=== PATIENT | male | born 1965 | race African-American/Black ===

== ENCOUNTER 2020-12-10 17:07 | Inpatient (IN) ==
[2020-12-10] MEDS ORDERED: ONDANSETRON 4 MG/2 ML VIAL IV PRN (17:29)
[2020-12-10] MEDS ORDERED: ALUMINUM/MAGNES/SIMETH MAX STR 30 ML UDCUP PO PRN (17:29)
[2020-12-10] MEDS ORDERED: ALBUTEROL 2.5 MG/3 ML NEB RESP TX PRN (17:29)
[2020-12-10] MEDS ORDERED: NOREPINEPHRINE 8 MG in SODIUM CHLORIDE 0.9% 242 ML IV SCH (17:30)
[2020-12-10] MEDS: LACTATED RINGERS 1,000 ML IV SCH (18:51)
[2020-12-10] MEDS: ENOXAPARIN 40 MG/0.4 ML SYRINGE SUBCUT SCH (18:55)
[2020-12-10] MEDS: CLINDAMYCIN INJ 600 MG in PREMIX 1 EACH IV SCH (18:55)
[2020-12-10] MEDS ORDERED: PNEUMOCOCCAL VACCINE (13 VALENT) 0.5 ML SYRINGE IM ONE (19:05)
[2020-12-10] MEDS: MEROPENEM 500 MG in SODIUM CHLORIDE 0.9% 100 ML IV SCH (20:10)
[2020-12-10] MEDS: methylPREDNISolone SOD SUC 40 MG/1 ML VIAL IV SCH (20:20)
[2020-12-11] MEDS: MEROPENEM 500 MG in SODIUM CHLORIDE 0.9% 100 ML IV SCH ×4 (00:11→17:19)
[2020-12-11] MEDS: CLINDAMYCIN INJ 600 MG in PREMIX 1 EACH IV SCH ×2 (02:08→09:09)
[2020-12-11] MEDS: LACTATED RINGERS 1,000 ML IV SCH ×2 (02:32→10:07)
[2020-12-11 04:27] LABS: Basophils % 0.1 % (0.0-0.8); Hematocrit 31.6 VOL% (42.0-52.0); Hemoglobin 10.5 GM/DL (14.0-18.0); Immature Granulocytes % 1.6 %; Immature Granulocytes Absolute 0.15 #; Lymphocytes # 0.3 10*3/uL (1.4-4.0); Lymphocytes % 2.6 % (21.2-54.2); Mean Corpuscular HGB Conc 33.2 GM/DL (32-36); Mean Corpuscular Volume 87.1 FL (87-102); Neutrophils % 93.7 % (38.7-73.9); Platelet Count 179 T/CUMM (130-400); Red Blood Count 3.63 MC/CUMM (3.8-5.5); Red Cell Distribution Width 16.4 % (9.3-17.3); White Blood Count 9.5 T/CUMM (4-12)
[2020-12-11 04:33] LABS: INR 1.2; PT Patient Result 13.2 SECS (9.8-11.9)
[2020-12-11] MEDS: ALBUTEROL/IPRATROPIUM 3 ML NEB RESP TX SCH ×4 (04:40→19:08)
[2020-12-11 04:51] LABS: Lymphocytes 3 % (20-55); Segmented Neutrophils 95 % (50-85); Total Cells Counted 100
[2020-12-11 04:52] LABS: Hypochromasia 1+; Microcytosis 1+; Ovalocytes Slight; Target Cells Slight
[2020-12-11 04:59] LABS: Albumin 2.3 G/DL (3.4-5.0); Bilirubin,Total 0.5 MG/DL (0.2-1.0); Calcium 8.7 MG/DL (8.5-10.1); Osmolality,Calculated 282.5 MOS/KG (273-304); Potassium 3.4 MMOL/L (3.5-5.1); Thyroid Stimulating Hormone 0.335 uIU/ml (0.358-3.74)
[2020-12-11] MEDS: methylPREDNISolone SOD SUC 40 MG/1 ML VIAL IV SCH ×2 (05:30→17:19)
[2020-12-11] MEDS: PANTOPRAZOLE 40 MG TABLET PO SCH (08:28)
[2020-12-11] MEDS ORDERED: POTASSIUM CHLORIDE 20 MEQ TABLET PO ONE (10:00)
[2020-12-11] MEDS: ENOXAPARIN 40 MG/0.4 ML SYRINGE SUBCUT SCH (17:20)
[2020-12-12] MEDS: ALBUTEROL/IPRATROPIUM 3 ML NEB RESP TX SCH ×4 (01:14→19:47)
[2020-12-12] MEDS: MEROPENEM 500 MG in SODIUM CHLORIDE 0.9% 100 ML IV SCH ×4 (01:40→19:06)
[2020-12-12 04:21] LABS: Osmolality,Calculated 283.5 MOS/KG (273-304); Potassium 3.5 MMOL/L (3.5-5.1)
[2020-12-12] MEDS: methylPREDNISolone SOD SUC 40 MG/1 ML VIAL IV SCH ×2 (06:31→19:06)
[2020-12-12] MEDS: amLODIPine 5 MG TABLET PO SCH (08:49)
[2020-12-12] MEDS: ENALAPRIL 10 MG TABLET PO SCH (08:49)
[2020-12-12] MEDS: PANTOPRAZOLE 40 MG TABLET PO SCH (08:49)
[2020-12-12] MEDS: FOLIC ACID 1 MG TABLET PO SCH (08:49)
[2020-12-12] MEDS: ENOXAPARIN 40 MG/0.4 ML SYRINGE SUBCUT SCH (19:04)
[2020-12-13] MEDS: MEROPENEM 500 MG in SODIUM CHLORIDE 0.9% 100 ML IV SCH ×4 (00:09→17:58)
[2020-12-13] MEDS: ALBUTEROL/IPRATROPIUM 3 ML NEB RESP TX SCH ×4 (00:37→19:48)
[2020-12-13 05:42] LABS: Basophils % 0.1 % (0.0-0.8); Hematocrit 29.7 VOL% (42.0-52.0); Hemoglobin 9.7 GM/DL (14.0-18.0); Immature Granulocytes % 3.4 %; Immature Granulocytes Absolute 0.84 #; Lymphocytes # 0.2 10*3/uL (1.4-4.0); Lymphocytes % 0.6 % (21.2-54.2); Mean Corpuscular HGB Conc 32.7 GM/DL (32-36); Mean Corpuscular Volume 89.5 FL (87-102); Mean Platelet Volume 10.5 FL (9.6-12.0); Monocytes % 3.8 % (1.7-12.7); Neutrophils % 92.1 % (38.7-73.9); Platelet Count 147 T/CUMM (130-400); Red Blood Count 3.32 MC/CUMM (3.8-5.5); Red Cell Distribution Width 16.6 % (9.3-17.3); White Blood Count 24.8 T/CUMM (4-12)
[2020-12-13 06:02] LABS: Hypochromasia 1+; Microcytosis 1+; Ovalocytes Slight; Platelet Estimate Adequate; Segmented Neutrophils 97 % (50-85); Total Cells Counted 100
[2020-12-13] MEDS: methylPREDNISolone SOD SUC 40 MG/1 ML VIAL IV SCH ×2 (06:05→17:58)
[2020-12-13 06:09] LABS: Calcium 8.5 MG/DL (8.5-10.1); Osmolality,Calculated 289.8 MOS/KG (273-304); Potassium 3.9 MMOL/L (3.5-5.1)
[2020-12-13] MEDS: PANTOPRAZOLE 40 MG TABLET PO SCH (08:48)
[2020-12-13] MEDS: FOLIC ACID 1 MG TABLET PO SCH (08:49)
[2020-12-13] MEDS: amLODIPine 5 MG TABLET PO SCH (09:20)
[2020-12-13] MEDS: ENALAPRIL 10 MG TABLET PO SCH (09:21)
[2020-12-13] MEDS: ENOXAPARIN 40 MG/0.4 ML SYRINGE SUBCUT SCH (17:57)
[2020-12-14] MEDS: MEROPENEM 500 MG in SODIUM CHLORIDE 0.9% 100 ML IV SCH ×5 (00:20→23:28)
[2020-12-14] MEDS: ALBUTEROL/IPRATROPIUM 3 ML NEB RESP TX SCH ×4 (02:00→20:05)
[2020-12-14] MEDS: methylPREDNISolone SOD SUC 40 MG/1 ML VIAL IV SCH ×2 (05:55→17:40)
[2020-12-14 06:26] LABS: Basophils % 0.2 % (0.0-0.8); Hematocrit 29.6 VOL% (42.0-52.0); Hemoglobin 9.6 GM/DL (14.0-18.0); Immature Granulocytes % 2.5 %; Immature Granulocytes Absolute 0.54 #; Lymphocytes # 0.3 10*3/uL (1.4-4.0); Lymphocytes % 1.1 % (21.2-54.2); Mean Corpuscular HGB Conc 32.4 GM/DL (32-36); Mean Corpuscular Volume 89.7 FL (87-102); Mean Platelet Volume 10.5 FL (9.6-12.0); Neutrophils % 91.2 % (38.7-73.9); Platelet Count 139 T/CUMM (130-400); Red Cell Distribution Width 16.9 % (9.3-17.3)
[2020-12-14 06:48] LABS: Band Neutrophils 1 % (0-10); Hypochromasia 1+; Lymphocytes 1 % (20-55); Microcytosis 1+; Platelet Estimate Adequate; Segmented Neutrophils 95 % (50-85); Target Cells Slight; Total Cells Counted 100
[2020-12-14 07:20] LABS: Potassium 3.9 MMOL/L (3.5-5.1)
[2020-12-14] MEDS ORDERED: PROMETHAZINE 25 MG/1 ML VIAL IM ONE (07:30)
[2020-12-14] MEDS ORDERED: MEPERIDINE 25 MG/1 ML VIAL IM ONE (07:30)
[2020-12-14] MEDS ORDERED: LIDOCAINE 1% 20 ML VIAL MISC INJ ONE (08:00)
[2020-12-14] MEDS ORDERED: LIDOCAINE 2% 20 ML VIAL RESP TX ONE (08:00)
[2020-12-14] MEDS ORDERED: LIDOCAINE 2% VISCOUS 100 ML BOTTLE SWISH/SPIT ONE (08:00)
[2020-12-14] MEDS ORDERED: MIDAZOLAM 2 MG/2 ML VIAL IV ONE (08:00)
[2020-12-14] MEDS: amLODIPine 5 MG TABLET PO SCH (12:29)
[2020-12-14] MEDS: ENALAPRIL 10 MG TABLET PO SCH (12:29)
[2020-12-14] MEDS: FOLIC ACID 1 MG TABLET PO SCH (12:29)
[2020-12-14] MEDS: PANTOPRAZOLE 40 MG TABLET PO SCH (12:29)
[2020-12-14] MEDS: ENOXAPARIN 40 MG/0.4 ML SYRINGE SUBCUT SCH (17:40)
[2020-12-15] MEDS: ALBUTEROL/IPRATROPIUM 3 ML NEB RESP TX SCH ×4 (01:34→20:01)
[2020-12-15] MEDS: methylPREDNISolone SOD SUC 40 MG/1 ML VIAL IV SCH ×2 (05:23→18:01)
[2020-12-15] MEDS: MEROPENEM 500 MG in SODIUM CHLORIDE 0.9% 100 ML IV SCH ×3 (05:25→21:27)
[2020-12-15] MEDS: FOLIC ACID 1 MG TABLET PO SCH (08:33)
[2020-12-15] MEDS: ENALAPRIL 10 MG TABLET PO SCH (08:33)
[2020-12-15] MEDS: PANTOPRAZOLE 40 MG TABLET PO SCH (08:33)
[2020-12-15] MEDS: amLODIPine 5 MG TABLET PO SCH (08:33)
[2020-12-15] MEDS: ENOXAPARIN 40 MG/0.4 ML SYRINGE SUBCUT SCH (18:03)
[2020-12-16] MEDS: ALBUTEROL/IPRATROPIUM 3 ML NEB RESP TX SCH ×4 (00:25→19:46)
[2020-12-16] MEDS: MEROPENEM 500 MG in SODIUM CHLORIDE 0.9% 100 ML IV SCH ×4 (03:13→21:36)
[2020-12-16] MEDS: methylPREDNISolone SOD SUC 40 MG/1 ML VIAL IV SCH ×2 (05:13→17:46)
[2020-12-16] MEDS: FOLIC ACID 1 MG TABLET PO SCH (10:03)
[2020-12-16] MEDS: PANTOPRAZOLE 40 MG TABLET PO SCH (10:03)
[2020-12-16] MEDS: ENALAPRIL 10 MG TABLET PO SCH (10:03)
[2020-12-16] MEDS: amLODIPine 5 MG TABLET PO SCH (10:10)
[2020-12-16] MEDS: ENOXAPARIN 40 MG/0.4 ML SYRINGE SUBCUT SCH (17:47)
[2020-12-17] MEDS: MEROPENEM 500 MG in SODIUM CHLORIDE 0.9% 100 ML IV SCH ×2 (04:06→09:28)
[2020-12-17] MEDS: methylPREDNISolone SOD SUC 40 MG/1 ML VIAL IV SCH (06:01)
[2020-12-17] MEDS: ALBUTEROL/IPRATROPIUM 3 ML NEB RESP TX SCH ×2 (07:24→13:47)
[2020-12-17] MEDS: FOLIC ACID 1 MG TABLET PO SCH (09:27)
[2020-12-17] MEDS: amLODIPine 5 MG TABLET PO SCH (09:27)
[2020-12-17] MEDS: PANTOPRAZOLE 40 MG TABLET PO SCH (09:27)
[2020-12-17] MEDS: ENALAPRIL 10 MG TABLET PO SCH (09:27)
[2020-12-17 11:57] VITALS: BP 125/90
== END 2020-12-17 14:15 | disposition home or self-care (01) | DRG 136 ==
LOC: N.ICU 18:33 → SUATTDRO 18:33 → N.4E 12-12 16:16
PROVIDERS: ADMIT Internal Medicine; ATTEND Internal Medicine

== ENCOUNTER 2020-12-22 13:53 | Inpatient (IN) ==
[2020-12-22] MEDS ORDERED: ACETAMINOPHEN 325 MG TABLET PO PRN (15:38)
[2020-12-22] MEDS ORDERED: ALBUTEROL 2.5 MG/3 ML NEB RESP TX PRN ×2 (15:38→16:12)
[2020-12-22] MEDS ORDERED: hydrALAZINE 20 MG/1 ML VIAL IV PRN (15:38)
[2020-12-22] MEDS ORDERED: ONDANSETRON 4 MG/2 ML VIAL IV PRN (15:38)
[2020-12-22 16:22] LABS: Basophils # 0.1 10*3/uL (0.0-0.2); Basophils % 0.2 % (0.0-0.8); Hematocrit 37.5 VOL% (42.0-52.0); Hemoglobin 12.3 GM/DL (14.0-18.0); Immature Granulocytes % 3.2 %; Immature Granulocytes Absolute 0.89 #; Lymphocytes # 0.1 10*3/uL (1.4-4.0); Lymphocytes % 0.3 % (21.2-54.2); Mean Corpuscular HGB Conc 32.8 GM/DL (32-36); Mean Corpuscular Volume 87.6 FL (87-102); Mean Platelet Volume 11.2 FL (9.6-12.0); Monocytes % 1.5 % (1.7-12.7); Neutrophils % 94.8 % (38.7-73.9); Platelet Count 124 T/CUMM (130-400); Red Blood Count 4.28 MC/CUMM (3.8-5.5); Red Cell Distribution Width 17.3 % (9.3-17.3); White Blood Count 27.9 T/CUMM (4-12)
[2020-12-22 16:32] LABS: ABG Base Excess 0.7 MMOL/L (-2.5-2.5); ABG Oxygen Saturation 92.7 % (95-100); ABG PCO2 35.2 MM HG (35-48); ABG PH 7.447 (7.35-7.45); ABG PO2 70.5 MM HG (80-95); ABG TCO2 21.3 MMOL/L (23-27); Allen Test Positive; Pt O2 Delivery Device Venturi Mask
[2020-12-22 16:32] LABS: Albumin 2.3 G/DL (3.4-5.0); Bilirubin,Total 0.9 MG/DL (0.2-1.0); Calcium 9.1 MG/DL (8.5-10.1); Osmolality,Calculated 289.3 MOS/KG (273-304); Potassium 3.9 MMOL/L (3.5-5.1); Total Protein 6.8 G/DL (5.0-7.5)
[2020-12-22] MEDS ORDERED: ALPRAZolam 0.25 MG TABLET PO PRN (17:00)
[2020-12-22] MEDS ORDERED: ALBUTEROL/IPRATROPIUM 3 ML NEB RESP TX ONE (17:16)
[2020-12-22] MEDS: methylPREDNISolone SOD SUC 40 MG/1 ML VIAL IV SCH (17:36)
[2020-12-22] MEDS: PANTOPRAZOLE 40 MG VIAL IV SCH (17:37)
[2020-12-22] MEDS: PIPERACILLIN/TAZOBACTAM 3,375 MG in SODIUM CHLORIDE 0.9% 100 ML IV SCH (17:37)
[2020-12-22 17:59] LABS: Lymphocytes 1 % (20-55); Segmented Neutrophils 98 % (50-85); Total Cells Counted 100
[2020-12-22] MEDS: ALBUTEROL/IPRATROPIUM 3 ML NEB RESP TX SCH (19:42)
[2020-12-23] MEDS: PIPERACILLIN/TAZOBACTAM 3,375 MG in SODIUM CHLORIDE 0.9% 100 ML IV SCH ×3 (00:31→16:25)
[2020-12-23] MEDS: methylPREDNISolone SOD SUC 40 MG/1 ML VIAL IV SCH ×3 (00:31→16:24)
[2020-12-23] MEDS: ALBUTEROL/IPRATROPIUM 3 ML NEB RESP TX SCH ×4 (01:06→19:20)
[2020-12-23 04:09] LABS: Basophils # 0.1 10*3/uL (0.0-0.2); Basophils % 0.2 % (0.0-0.8); Hematocrit 36.7 VOL% (42.0-52.0); Hemoglobin 12.4 GM/DL (14.0-18.0); Immature Granulocytes % 2.2 %; Immature Granulocytes Absolute 0.58 #; Lymphocytes # 0.1 10*3/uL (1.4-4.0); Lymphocytes % 0.5 % (21.2-54.2); Mean Corpuscular HGB Conc 33.8 GM/DL (32-36); Mean Corpuscular Volume 85.3 FL (87-102); Monocytes % 2.5 % (1.7-12.7); Neutrophils % 94.6 % (38.7-73.9); Platelet Count 117 T/CUMM (130-400); Red Cell Distribution Width 17.2 % (9.3-17.3); White Blood Count 25.9 T/CUMM (4-12)
[2020-12-23 04:41] LABS: Segmented Neutrophils 98 % (50-85); Total Cells Counted 100
[2020-12-23 04:44] LABS: ABG HCO3 25.2 MMOL/L (20-26); ABG PCO2 37.1 MM HG (35-48); ABG PH 7.436 (7.35-7.45); ABG TCO2 21.9 MMOL/L (23-27)
[2020-12-23 05:26] LABS: Albumin 2.4 G/DL (3.4-5.0); Calcium 9.4 MG/DL (8.5-10.1); Osmolality,Calculated 295.1 MOS/KG (273-304); Potassium 3.6 MMOL/L (3.5-5.1); Total Protein 6.9 G/DL (5.0-7.5)
[2020-12-23] MEDS: FOLIC ACID 1 MG TABLET PO SCH (08:16)
[2020-12-23] MEDS: MORPHINE 4 MG/1 ML VIAL IV PRN ×2 (10:06→19:39)
[2020-12-23] MEDS ORDERED: SODIUM CHLORIDE 0.9% 1,000 ML IV ONE (12:58)
[2020-12-23] MEDS: SODIUM CHLORIDE 0.9% 1,000 ML IV SCH ×2 (14:15→21:00)
[2020-12-23] MEDS ORDERED: ENOXAPARIN 80 MG/0.8 ML SYRINGE SUBCUT SCH (14:30)
[2020-12-23] MEDS: PANTOPRAZOLE 40 MG VIAL IV SCH (16:24)
[2020-12-24] MEDS: methylPREDNISolone SOD SUC 40 MG/1 ML VIAL IV SCH ×3 (00:49→19:44)
[2020-12-24] MEDS: PIPERACILLIN/TAZOBACTAM 3,375 MG in SODIUM CHLORIDE 0.9% 100 ML IV SCH ×3 (00:49→17:01)
[2020-12-24] MEDS: ALBUTEROL/IPRATROPIUM 3 ML NEB RESP TX SCH ×4 (01:36→19:35)
[2020-12-24] MEDS: SODIUM CHLORIDE 0.9% 1,000 ML IV SCH ×3 (03:41→18:30)
[2020-12-24] MEDS: MORPHINE 4 MG/1 ML VIAL IV PRN ×4 (03:45→19:47)
[2020-12-24 04:47] LABS: Basophils % 0.1 % (0.0-0.8); Hematocrit 32.9 VOL% (42.0-52.0); Hemoglobin 10.5 GM/DL (14.0-18.0); Immature Granulocytes % 3.3 %; Immature Granulocytes Absolute 1.05 #; Lymphocytes # 0.2 10*3/uL (1.4-4.0); Lymphocytes % 0.5 % (21.2-54.2); Mean Corpuscular HGB Conc 31.9 GM/DL (32-36); Mean Corpuscular Volume 90.6 FL (87-102); Mean Platelet Volume 11.5 FL (9.6-12.0); Monocytes % 2.9 % (1.7-12.7); Neutrophils % 93.2 % (38.7-73.9); Platelet Count 120 T/CUMM (130-400); Red Blood Count 3.63 MC/CUMM (3.8-5.5); Red Cell Distribution Width 17.5 % (9.3-17.3); White Blood Count 32.3 T/CUMM (4-12)
[2020-12-24 05:12] LABS: Calcium 8.7 MG/DL (8.5-10.1); Osmolality,Calculated 302.6 MOS/KG (273-304); Potassium 3.6 MMOL/L (3.5-5.1)
[2020-12-24 05:20] LABS: Hypochromasia 2+; Platelet Estimate Decreased
[2020-12-24 05:21] LABS: Target Cells 1+
[2020-12-24] MEDS: FOLIC ACID 1 MG TABLET PO SCH (08:09)
[2020-12-24] MEDS: LACTOBACILLUS ACIDOPHILUS/BULGARICUS CAPLET PO SCH (12:17)
[2020-12-24] MEDS: ENOXAPARIN 40 MG/0.4 ML SYRINGE SUBCUT SCH (12:17)
[2020-12-24] MEDS: LEVOFLOXACIN INJ 750 MG in PREMIX 1 EACH IV SCH (12:30)
[2020-12-24] MEDS: VANCOMYCIN INJ 1,000 MG in SODIUM CHLORIDE 0.9% 250 ML IV SCH (14:05)
[2020-12-24] MEDS: PANTOPRAZOLE 40 MG VIAL IV SCH (16:57)
[2020-12-25] MEDS: VANCOMYCIN INJ 1,000 MG in SODIUM CHLORIDE 0.9% 250 ML IV SCH ×2 (00:42→15:07)
[2020-12-25] MEDS: PIPERACILLIN/TAZOBACTAM 3,375 MG in SODIUM CHLORIDE 0.9% 100 ML IV SCH ×2 (00:43→08:48)
[2020-12-25] MEDS: MORPHINE 4 MG/1 ML VIAL IV PRN ×3 (00:50→06:59)
[2020-12-25] MEDS: SODIUM CHLORIDE 0.9% 1,000 ML IV SCH ×2 (01:42→08:41)
[2020-12-25] MEDS: ALBUTEROL/IPRATROPIUM 3 ML NEB RESP TX SCH ×4 (01:56→21:16)
[2020-12-25 04:20] LABS: ABG HCO3 25.6 MMOL/L (20-26); ABG Oxygen Saturation 95.8 % (95-100); ABG PO2 98.7 MM HG (80-95); ABG TCO2 27.9 MMOL/L (23-27)
[2020-12-25 04:22] LABS: ABG PCO2 73.7 MM HG (35-48); ABG PH 7.159 (7.35-7.45)
[2020-12-25 04:52] LABS: Basophils % 0.2 % (0.0-0.8); Hematocrit 33.2 VOL% (42.0-52.0); Hemoglobin 10.3 GM/DL (14.0-18.0); Immature Granulocytes % 4.5 %; Immature Granulocytes Absolute 1.18 #; Lymphocytes # 0.1 10*3/uL (1.4-4.0); Lymphocytes % 0.3 % (21.2-54.2); Mean Platelet Volume 12.4 FL (9.6-12.0); Monocytes % 5.1 % (1.7-12.7); Neutrophils % 89.9 % (38.7-73.9); Platelet Count 103 T/CUMM (130-400); Red Blood Count 3.57 MC/CUMM (3.8-5.5); Red Cell Distribution Width 17.6 % (9.3-17.3); White Blood Count 26.5 T/CUMM (4-12)
[2020-12-25 05:12] LABS: Hypochromasia 2+; Lymphocytes 1 % (20-55); Segmented Neutrophils 96 % (50-85); Total Cells Counted 100
[2020-12-25 05:13] LABS: Microcytosis 1+; Platelet Estimate Decreased
[2020-12-25 05:14] LABS: Bilirubin,Total 0.5 MG/DL (0.2-1.0); Calcium 8.6 MG/DL (8.5-10.1); Osmolality,Calculated 306.1 MOS/KG (273-304); Potassium 4.2 MMOL/L (3.5-5.1); Total Protein 5.7 G/DL (5.0-7.5)
[2020-12-25] MEDS: methylPREDNISolone SOD SUC 40 MG/1 ML VIAL IV SCH (08:41)
[2020-12-25] MEDS: FOLIC ACID 1 MG TABLET PO SCH (08:47)
[2020-12-25] MEDS: LACTOBACILLUS ACIDOPHILUS/BULGARICUS CAPLET PO SCH (08:47)
[2020-12-25] MEDS: ENOXAPARIN 40 MG/0.4 ML SYRINGE SUBCUT SCH (13:00)
[2020-12-25] MEDS: SODIUM CHLORIDE 0.45% 1,000 ML IV SCH (13:04)
[2020-12-25] MEDS: DEXAMETHASONE 4 MG/1 ML VIAL IV SCH ×2 (13:04→18:47)
[2020-12-25] MEDS: LEVOFLOXACIN INJ 750 MG in PREMIX 1 EACH IV SCH (13:06)
[2020-12-25] MEDS ORDERED: FUROSEMIDE 40 MG/4 ML VIAL IV ONE (14:59)
[2020-12-25] MEDS: PANTOPRAZOLE 40 MG VIAL IV SCH (15:57)
[2020-12-26] MEDS: ALBUTEROL/IPRATROPIUM 3 ML NEB RESP TX SCH ×2 (00:57→07:15)
[2020-12-26] MEDS: DEXAMETHASONE 4 MG/1 ML VIAL IV SCH ×2 (01:03→07:01)
[2020-12-26] MEDS: VANCOMYCIN INJ 1,000 MG in SODIUM CHLORIDE 0.9% 250 ML IV SCH (03:08)
[2020-12-26 04:22] LABS: Basophils % 0.1 % (0.0-0.8); Hematocrit 33.3 VOL% (42.0-52.0); Hemoglobin 9.8 GM/DL (14.0-18.0); Immature Granulocytes % 2.4 %; Immature Granulocytes Absolute 0.53 #; Lymphocytes # 0.1 10*3/uL (1.4-4.0); Lymphocytes % 0.4 % (21.2-54.2); Mean Corpuscular HGB Conc 29.4 GM/DL (32-36); Mean Corpuscular Volume 97.7 FL (87-102); Mean Platelet Volume 12.4 FL (9.6-12.0); Monocytes % 3.7 % (1.7-12.7); NRBC # 0.03 10*3/uL; Neutrophils % 93.4 % (38.7-73.9); Red Blood Count 3.41 MC/CUMM (3.8-5.5); Red Cell Distribution Width 17.6 % (9.3-17.3); White Blood Count 21.6 T/CUMM (4-12)
[2020-12-26 04:25] LABS: Platelet Count 76 T/CUMM (130-400)
[2020-12-26 04:39] LABS: Hypochromasia 1+; Lymphocytes 1 % (20-55); Microcytosis 1+; Platelet Estimate Decreased; Segmented Neutrophils 95 % (50-85); Total Cells Counted 100
[2020-12-26 04:41] LABS: Alanine Aminotransferase 27 U/L (16-61); Albumin 1.7 G/DL (3.4-5.0); Alkaline Phosphatase 126 U/L (45-117); Aspartate Amino Transferase 50 U/L (0-37); Bilirubin,Total < 0.39 MG/DL (0.2-1.0); Blood Urea Nitrogen 55 MG/DL (7-18); Calcium 8.2 MG/DL (8.5-10.1); Carbon Dioxide 24 MMOL/L (21-32); Estimated Glom Filtration Rate 44 ML/MIN; Glucose 138 MG/DL (74-106); Potassium 4.9 MMOL/L (3.5-5.1); Sodium 150 MMOL/L (136-145); Total Protein 5.3 G/DL (6.4-8.2)
[2020-12-26] MEDS ORDERED: LORazepam 2 MG/1 ML VIAL IV PRN ×2 (07:48→09:39)
[2020-12-26] MEDS: SODIUM CHLORIDE 0.45% 1,000 ML IV SCH (07:59)
== END 2020-12-26 11:04 | disposition expired | DRG 180 ==
LOC: SUATTDRO 15:02 → N.CC 15:02 → N.4E 12-26 08:42
PROVIDERS: ADMIT Internal Medicine; ATTEND Family Medicine